=== PATIENT | female | born 1995 | race Caucasian/White ===

== ENCOUNTER 2016-09-04 02:34 | Inpatient (IN) ==
[2016-09-04 03:28] LABS: Basophils # 0.1 K/mcL (0.0-0.2); Basophils % 0.4 %; Eosinophils # 0.1 K/mcL (0.0-0.6); Eosinophils % 0.4 %; Hematocrit 39.8 % (35.3-44.9); Hemoglobin 12.8 g/dL (11.5-15.4); Immature Granulocytes % 0.4 % (0-4); Lymphocytes # 5.6 K/mcL (0.6-4.6); Lymphocytes % 49.2 %; Mean Corpuscular HGB Conc 32.2 g/dL (31.6-35.5); Mean Corpuscular Hemoglobin 27.2 pg (28.0-33.3); Mean Corpuscular Volume 84.7 fL (83.0-100.0); Mean Platelet Volume 10.3 fL (9.4-12.4); Monocytes # 0.7 K/mcL (0.0-1.3); Monocytes % 5.9 %; Neutrophils # 4.9 K/mcL (1.6-8.9); Platelet Count 261 K/mcL (140-400); Segmented Neutrophils % 43.7 %
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
[2016-09-04 03:31] LABS: Bilirubin,Urine Negative (Negative); Blood,Urine Negative (Negative); Clarity,Urine Clear (Clear); Color,Urine Yellow (Yellow); Glucose,Urine (UA) Normal (Normal); Ketones,Urine Negative (Negative); Leukocyte Esterase,Urine Negative (Negative); Nitrite,Urine Negative (Negative); PH,Urine 5.5 pH Units (5.0-8.0); Protein,Urine Negative (Neg-Trace); Specific Gravity,Urine 1.017 (1.010-1.025); Urobilinogen,Urine Normal (Normal)
[2016-09-04 03:37] LABS: Amphetamine Screen,Urine Negative ng/mL (Cutoff=1000); Barbiturate Screen,Urine Negative ng/mL (Cutoff=200); Benzodiazepines Screen,Urine Negative ng/mL (Cutoff=200); Cannabinoid Screen,Urine Negative ng/mL (Cutoff = 50); Cocaine Screen,Urine Negative ng/mL (Cutoff= 300); Opiate Screen,Urine Negative ng/mL (Cutoff=300); Phencyclidine Screen,Urine Negative ng/mL (Cutoff=25)
[2016-09-04 03:43] LABS: BUN/Creatinine Ratio 20 (6-26); Blood Urea Nitrogen 16 mg/dL (7-20); Calcium 9.1 mg/dL (8.6-10.8); Carbon Dioxide 21 mEq/L (19-29); Chloride 109 mEq/L (98-109); Glucose 98 mg/dL (70-99); Osmolality,Calculated 295 (280-300); Potassium 3.6 mEq/L (3.5-4.5); Sodium 142 mEq/L (136-145); eGFR For African Americans > 60 (> 60); eGFR For Non-African Americans > 60 (> 60)
[2016-09-04 03:45] LABS: Acetaminophen < 1.0 mcg/mL (10-30); Ethanol < 10 mg/dL (0-10); Salicylate < 5.0 mg/dL (15-30)
[2016-09-04] MEDS ORDERED: MOM Conc 10 ML UD.LIQ PO PRN (05:49)
[2016-09-04] MEDS ORDERED: Mag Hydrox/Al Hydrox/Simeth 30 ML UDC PO PRN (05:49)
[2016-09-04] MEDS ORDERED: Nicotine 2 MG GUM BC PRN (05:49)
[2016-09-04] MEDS ORDERED: *HR* LORazepam 2 MG/ML VIAL IM PRN (05:49)
[2016-09-04] MEDS ORDERED: hydrOXYzine pamoate 25 MG CAPSULE PO PRN (05:49)
[2016-09-04] MEDS ORDERED: Haloperidol Lactate 5 MG/ML VIAL IM PRN (05:49)
[2016-09-04] MEDS ORDERED: *HR* LORazepam 1 MG TABLET PO PRN (05:49)
[2016-09-04] MEDS ORDERED: Acetaminophen 325 MG TABLET PO PRN (05:49)
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
[2016-09-04] MEDS: Gabapentin 100 MG CAPSULE PO SCH ×2 (12:19→20:32)
[2016-09-04] MEDS: traZODone 50 MG TABLET PO PRN (20:32)
--- NOTE | 2016-09-05 12:14 | Psychiatry Progress Note ---
Date of Encounter: 09/05/16 Time of Encounter: 11:30 Subjective Interval history: Patient is seen for follow-up. She reports improved sleep and feeling less anxious. She experienced some nausea. She denies suicidal ideation. She is participating in activities and motivated to self-improvement by adding more activities like exercise and healthy diet and regular therapy. Review of Systems Psychiatric: Reports: depression, anxiety, suicidal ideation, hopelessness, mood swings Objective: Exam Patient orientation: Yes Person, Yes Time, Yes Place Level of alertness: Alert Patient appearance: Appropriate, Well Groomed, Obese Behavior: calm, cooperative Psychomotor activity: Normal Eye contact: Maintains Eye Contact Mood description: Euthymic/stable, Anxious Affect description: congruent with mood, labile Speech pattern: Normal rate, Normal rhythm, Normal tone Speech volume: Normal Thought process: Linear, Goal Oriented Thought content: No Suicidal ideation, No Homicidal ideation, No Overt delusions Perceptual disturbances: No Auditory hallucinations, No Visual hallucinations Judgment: Fair Insight: Partial Results - Vital Signs Vital Signs: Temp Pulse Resp BP Pulse Ox 97.4 F L 75 16 124/81 100 09/05/16 09:00 09/05/16 09:00 09/05/16 09:00 09/05/16 09:00 09/04/16 02:35 Assessment and Plan (1) Persistent mood [affective] disorder, unspecified Current visit: Yes Status: Acute Plan: Continue hospitalization, Close observation, Suicide Precautions per unit protocol, Encourage participation in unit milieu, Group Therapy, Monitor sleep, Monitor appetite Risks, benefits, side effects, alternatives discussed w/pt: Yes Patient agreeable to treatment: Yes Consult Discharge Plan - Plan Referrals: Eleni Huerta [Outside] - 09/20/16 12:00 pm (The above appointment is with Rajani Knowles for counseling.) Jerod Barbosa MD [Partnered Physician] - 09/18/16 1:20 pm (The above appointment is with Dr. Barbosa.)
[2016-09-05] MEDS: traZODone 50 MG TABLET PO PRN (21:20)
[2016-09-05] MEDS: Gabapentin 100 MG CAPSULE PO SCH (21:20)
[2016-09-06 09:48] VITALS: BP 115/83
--- NOTE | 2016-09-06 11:51 | Discharge Summary ---
Date of Encounter: 09/06/16 Time of Encounter: 11:30 Diagnosis - Discharge Diagnosis (1) Persistent mood [affective] disorder, unspecified Status: Acute Medications - Discharge Medications Prescriptions: Citalopram [CeleXA] 20 mg PO DAILY #30 tablet Gabapentin [Neurontin] 100 mg PO HS #60 capsule Citalopram [CeleXA] 20 mg PO DAILY #30 tablet 09/06/16 [Rx] Gabapentin [Neurontin] 100 mg PO HS #60 capsule 09/06/16 [Rx] Allergies No Known Allergies Allergy (Verified 09/04/16 09:35) Provider Date of admission: 09/04/16 05:09 Primary care physician: PCP NO Consults: 09/04/16 05:51 Consult to Pastoral Services [CONS] Routine Comment: Discharging clinician: [place] Assessment and Plan - Patient/Caregiver Discharge Instructions Activity: resume usual activities as tolerated Diet: regular diet - Follow up Plan Follow up with: Eleni Huerta [Outside] - 09/20/16 12:00 pm (The above appointment is with Rajani Knowles for counseling.) Jerod Barbosa MD [Partnered Physician] - 09/18/16 1:20 pm (The above appointment is with Dr. Barbosa.) Functional capacity at discharge: independent ambulation Overall status at discharge: Stable Disposition: Home, Self-Care Hospital Course Hospital course: Ms. Kat is a 21 year old female admitted for suicidal ideation. For details admission please see H&P On the units patient was started on citalopram and gabapentin. She tolerated the medication and reported improved sleep and less irritability and mood swings. She participated in groups and activities and she was medication compliant. She was less depressed and denies suicidal ideation. Her discharge plans were reviewed by the social insurance adviser and included therapy and medication management. On discharge patient was medically stable and motivated to work on goals including exercises and healthy diet and more activity. - Time Spent with Patient Total time spent providing and/or coordinating discharge services: Greater than 30 minutes Quality - Multiple Antipsychotics Patient discharged on 2 or more antipsychotic medications: No Procedures - Procedures Procedures: Medication Management, Crisis Stabilization, Supportive Therapy, Group Therapy, Psychoeducational Therapy Mental Status Exam - Mental Status Exam Patient orientation: Yes Person, Yes Time, Yes Place Level of alertness: Alert Patient appearance: Appropriate, Well Groomed Behavior: calm, cooperative Psychomotor activity: Normal Eye contact: Maintains Eye Contact Mood description: Euthymic/stable, Anxious Affect description: congruent with mood, full range Speech pattern: Normal rate, Normal rhythm, Normal tone Speech Volume: Normal Thought process: Linear, Goal Oriented Thought Content: No Suicidal ideation, No Homicidal ideation, No Overt delusions Perceptual Disturbances: No Auditory hallucinations, No Visual hallucinations Judgment: Limited Insight: Partial
== END 2016-09-06 12:56 | disposition home or self-care (01) | DRG 885 ==
LOC: EMEROO 02:34 → 1ANU 05:09
PROVIDERS: ADMIT Psychiatry & Neurology Psychiatry; ATTEND Psychiatry & Neurology Psychiatry